=== PATIENT | female | born 1935 | race Caucasian/White ===

== ENCOUNTER → 2021-08-12 | Outpatient (CLI) | payer OTHER ==
[~2021-08-12] MED LIST: B COMPLEX1 EACH PO; CITRACAL SOFT1 EACH PO; CO-ENZYME Q-1010 MG PO; CYSTEX PO; ELIQUIS5 MG PO; FOLIC ACID0.4 MG PO; IRON18 M1 PO; KRILL OIL500 MG PO; LEVO-T25 MCG PO; MAGNESIUM100 MG PO; METAMUCIL POWD174 GM PO; MULTI VITAMIN1 EACH PO; POTASSIUM CITR10 ME1 PO; TOPROL XL50 MG; VITAMIN B-6100 MG PO; VITAMIN C500 M1 PO; VITAMIN D31250 MC1 PO; ZOCOR 20 MG TAB20 M1 PO; ZOLOFT25 MG PO
== END ==
LOC: LAB 14:25
PROVIDERS: ATTEND Student in an Organized Health Care Education/Training Program
DX: Z01.812 Encounter for preprocedural laboratory examination (principal); Z20.822 Contact with and (suspected) exposure to COVID-19

== ENCOUNTER → 2021-08-16 | Outpatient (CLI) | payer OTHER ==
[~2021-08-16] VITALS: Ht 160 cm; Wt 67.1 kg
--- NOTE | 2021-08-16 15:33 | EKG ---
[address] [place] [address] ELECTROCARDIOGRAM REPORT Name: LYNN BATES Room #: REG [facility]#: [id number] Admission: 08/16/21 Attend Phys: Andre Will MD Discharge: Date of : 39 Report #: [id number] [facility] Test Date: 2021-08-16 Test Time: 11:25:10 Pat Name: LYNN BATES Department: Room: Gender: F Metal [employer]: BRITANY : 1935 Requested By: Miya Wade Order Number: [id number] : Heber Benito Measurements Intervals [place] Rate: 136 P: AK: QRS: 14 QRSD: 94 T: 6 QT: 317 QTc: 477 Interpretive Statements Atrial fibrillation Low voltage, extremity leads No previous ECG available for comparison Electronically Signed On 08-16-2021 15:33:32 CDT by Heber Benito [email or web address] <ELECTRONICALLY SIGNED> By: Heber Benito MD, [facility] 08/16/21 1533 1125 1125 Heber Benito MD, FACC /EPI
--- NOTE | 2021-08-19 10:11 | PATH ---
[facility] [address] [place] [address] PATHOLOGY RPT PROCEDURE Name: LYNN BATES Room #: REG [facility] MChandrakant.#: [id number] Admission: 08/16/21 Date of : 39 Discharge: Report #: [id number] Path Case #: [id number] [facility] Accession Number: [id number] . 01 Material submitted: . colon - POLYPS ASCENDING COLON X2. Modifiers: ascending . 01 Clinical history: . COLONOSCOPY SCREENING/DIVERTICULITIS COLON POLYP . 02 Diagnosis: Colonic mucosa, polyps ascending colon x 2, biopsy: - Tubular adenomas (2). (SCA:pit; 08/18/2021) . QTP 08/18/2021 1020 Local . 02 Electronically signed: . Hernan Valle DO, Pathologist NPI- [id number] . 01 Gross description: . The specimen is received in formalin, labeled "Lynn Bates, polyp ascending colon BX 2". Received are 2 segments of pale arthur tissue ranging in size from 0.3 to 0.4 cm in maximum dimensions. The specimen is submitted entirely in cassette A1.([facility]; 08/17/2021) [facility] 08/17/2021 1603 Local . 02 Pathologist provided ICD-10: D12.2 . 02 CPT . 861850 Specimen Comment: A courtesy copy of this report has been sent to [phone] Specimen Comment: [phone] Specimen Comment: Report sent to / DR COOK Specimen Comment: A duplicate report has been generated due to demographic updates. Performed at: 01 [facility] [address] [place] [address] [id number] MD Jc Hua MD Phone: [phone] Performed at: [address] [place] [address] PATHOLOGY RPT PROCEDURE Name: LYNN BATES Room #: REG [facility]#: [id number] Admission: 08/16/21 Date of : 39 Discharge: Report #: [id number] Path Case #: [id number] [address] [id number] MD Kev Melvin MD Phone: [phone]
== END | disposition home or self-care (01) ==
LOC: GI
PROVIDERS: ATTEND Internal Medicine Gastroenterology
DX: K57.92 Diverticulitis of intestine, part unspecified, without perforation or abscess without bleeding (principal); D12.2 Benign neoplasm of ascending colon; K57.30 Diverticulosis of large intestine without perforation or abscess without bleeding; I10 Essential (primary) hypertension; I48.91 Unspecified atrial fibrillation; E78.5 Hyperlipidemia, unspecified; F32.9 Major depressive disorder, single episode, unspecified; F41.9 Anxiety disorder, unspecified; Z98.890 Other specified postprocedural states; Z79.899 Other long term (current) drug therapy; Z87.891 Personal history of nicotine dependence; Z93.3 Colostomy status; Z90.49 Acquired absence of other specified parts of digestive tract; Z90.710 Acquired absence of both cervix and uterus
CPT/HCPCS: 62110; 62900